=== PATIENT | female | born 1955 | race Caucasian/White ===

== ENCOUNTER 2022-09-20 08:47 | Outpatient (CLI) | payer BC, MEDICARE | END 2022-09-20 08:48 | disposition home or self-care (01) | LOC: CSHWCC 08:47 | PROVIDERS: ATTEND Nurse Practitioner Family | DX: T81.89XD Other complications of procedures, not elsewhere classified, subsequent encounter (principal); S51.802D Unspecified open wound of left forearm, subsequent encounter | CPT/HCPCS: 97597; 99213; G0463 ==

== ENCOUNTER 2022-10-04 10:31 | Outpatient (CLI) | payer BC | END 2022-10-04 10:32 | disposition home or self-care (01) | LOC: CSHWCC 10:31 | PROVIDERS: ATTEND Nurse Practitioner Family | DX: S51.802D Unspecified open wound of left forearm, subsequent encounter (principal); T81.89XD Other complications of procedures, not elsewhere classified, subsequent encounter | CPT/HCPCS: 99213; G0463 ==

== ENCOUNTER 2022-10-18 11:26 | Outpatient (CLI) | payer BC | END 2022-10-18 11:27 | disposition home or self-care (01) | LOC: CSHWCC 11:26 | PROVIDERS: ATTEND Nurse Practitioner Family | DX: T81.89XD Other complications of procedures, not elsewhere classified, subsequent encounter (principal) ==

== ENCOUNTER 2022-11-09 12:54 | Outpatient (CLI) | payer MEDICARE, BC | END 2022-11-09 12:55 | disposition home or self-care (01) | LOC: CSHWCC 12:54 | PROVIDERS: ATTEND Nurse Practitioner Family | DX: T81.89XD Other complications of procedures, not elsewhere classified, subsequent encounter (principal) ==